=== PATIENT | female | born 2000 | race Caucasian/White ===

== ENCOUNTER 2020-10-22 07:35 | Outpatient (CLI) | payer OTHER ==
[~2020-10-22 07:35] MED LIST: FLOVENT13 G2 IH; PROVENTIL HFA6.7 GM
== END 2020-10-22 07:46 | disposition home or self-care (01) ==
LOC: SONOGRAMA 07:35
DX: E04.1 Nontoxic single thyroid nodule (principal); R10.0 Acute abdomen

== ENCOUNTER 2021-11-13 10:08 | Outpatient (CLI) | payer OTHER | END 2021-11-13 10:09 | disposition home or self-care (01) | LOC: SONOGRAMA 10:08 | PROVIDERS: ATTEND Internal Medicine Sports Medicine | DX: E03.8 Other specified hypothyroidism (principal); E04.1 Nontoxic single thyroid nodule ==

== ENCOUNTER 2024-11-20 10:40 | Outpatient (CLI) | payer OTHER | END 2024-11-20 10:42 | disposition home or self-care (01) | LOC: SONOGRAMA 10:40 | PROVIDERS: ATTEND Internal Medicine Sports Medicine | DX: E04.1 Nontoxic single thyroid nodule (principal) ==